=== PATIENT | female | born 1980 | race Caucasian/White ===

== ENCOUNTER 2019-10-24 21:05 | Emergency (ER) | payer OTHER, SELFPAY ==
[2019-10-24 21:11] VITALS: BP 145/90; PULSE 94; RESP 16; TEMP 36.4; O2SAT 98; BMI 24.2
--- NOTE | 2019-10-24 21:37 | ED_ITS ---
HPI - Back Pain/Injury General Chief Complaint: Back Pain/Injury Stated Complaint: low back and right hip pain Time Seen by Provider: 10/24/19 21:36 Source: patient History of Present Illness HPI Narrative: 39-year-old woman with no significant medical history comes in tonight with severe right sided lumbar spine pain with muscle spasm and radicular pain into the right hip. She notes that she been playing Frisbee about 2 weeks ago and had some mild strain to the lumbar region. She has been using Tylenol, ibuprofen, stretching, ice and felt that things were getting slightly better however over the last days it has hurt a bit more and then in the last 2 hours it has dramatically spasming and now radiating into the right hip. She describes no fevers, cough, chills, abdominal pain, flank pain, urine symptoms or bowel or bladder changes. She has no history of recent infection or IV drug use or immunosuppression. Related Data Previous Rx's Medication Instructions Recorded diazepam 5 mg PO TID PRN #10 tab 10/24/19 Allergies Allergy/AdvReac Type Severity Reaction Status Date / Time Opioids - Morphine Analogues Allergy Severe Unresponsiv Verified 10/24/19 21:16 e Penicillins Allergy Severe Hives Verified 10/24/19 21:16 Review of Systems Review of Systems Narrative: Remainder of review of systems including constitutional, ENT, cardiovascular, respiratory, GI, , musculoskeletal, skin, neurologic and psychiatric systems reviewed and are unremarkable except as noted in HPI. Patient History Medical History Acute low back pain (Acute) Social History Smoking Status: Never smoker Smoking Status: Never smoker alcohol intake frequency: a few times a week Substance Use Type: marijuana Exam Narrative Exam Narrative: General: Healthy appearing, in moderate distress secondary to low back pain HEENT: Moist mucous membranes, normal sclera with reactive pupils, Respiratory: Lungs are clear to auscultation, no wheezing no rales no rhonchi. Full and symmetrical air movement Cardiac: Regular rate and rhythm no murmurs no bruits Abdomen: Soft nontender good bowel tones, no flank pain Skin: Warm and dry, no rashes Spine: Significant muscle spasm from approximately T12 to the sacrum on the right side Neurologic: Grossly neurologically intact with no obvious asymmetries or abnormalities, positive straight leg test on the right side with normal reflexes and lower extremities and neurovascularly intact in lower extremities Extremities: No trauma, well perfused Psych: Cooperative, appropriate insight and affect Initial Vital Signs Initial Vital Signs: Vital Signs Temperature 97.6 F 10/24/19 21:11 Pulse Rate 94 H 10/24/19 21:11 Respiratory Rate 16 10/24/19 21:11 Blood Pressure 145/90 H 10/24/19 21:11 Pulse Oximetry 98 10/24/19 21:11 Course Orders Ordered: Discontinued Medications Diazepam (Valium) 5 mg PO NOW ONE Stop: 10/24/19 21:52 Last Admin: 10/24/19 22:08 Dose: 5 mg Documented by: BRET Ketorolac Tromethamine (Toradol) 30 mg IM NOW ONE Stop: 10/24/19 21:52 Last Admin: 10/24/19 22:08 Dose: 30 mg Documented by: BRET Vital Signs Vital signs: Vital Signs - 8 hr 10/24/19 21:11 Temperature 97.6 F Pulse Rate 94 H Respiratory Rate 16 Blood Pressure 145/90 H Pulse Oximetry 98 [facility] - Back Pain/Injury Medical Records Attestation: I reviewed the patient's medical records. [facility] Narrative Medical decision making narrative: 39-year-old woman with acute right-sided lower back pain with significant spasm. In the past she has had significant vomiting and nausea with even small amounts of opioid. Will try IM Toradol and diazepam for muscle spasm and re-evaluate. At this time there is no indication for acute infection, epidural abscess, UTI or pyelonephritis or cauda equinus syndrome. No additional red flags to suggest that any imaging is appropriate at this time 10:50 feeling significantly better after medications. 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 She is safe for home discharge. Discharge Plan Departure Patient Disposition: Home Clinical Impression: Acute low back pain Qualifiers: Back pain laterality: right Sciatica presence: with sciatica Sciatica laterality: sciatica of right side Qualified Code(s): M54.41 - Lumbago with sciatica, right side Instructions: DI for Low Back Pain Activity Restrictions/Additional Instructions: Thank you for coming in today I am sorry that you hurting so much. In the emergency room, your given a shot of Toradol (similar in effect to ibuprofen) as well as Valium/diazepam as a muscle relaxer. This combination seem to work moderately effectively and seems like it will get you to the level of comfort where your at least able to get some sleep this evening. Using 400 mg of ibuprofen (2 [id number] pills) and 1 Tylenol every 6 hours can be very helpful in controlling pain. For the muscle spasm using 5 mg of Valium/diazepam up to every 8 hours will help. Continuing to use ice and massage will also be useful. Please follow-up with Dr. Aldrich next week. If you not significantly improved he may find that physical therapy is helpful in getting back to as functional as possible. If you have worsening pain, fevers, developing abdominal or flank pain are other new or concerning findings please feel free to return to the emergency department and I am happy to re-evaluate. I wish you the best Prescriptions: New diazepam 5 mg tablet 5 mg PO TID PRN (Reason: muscle spasm) Qty: 10 RF: 0
[2019-10-24] MEDS: diazePAM 5 MG TABLET PO (22:08)
[2019-10-24] MEDS: KETOROLAC 60 MG/2 ML VIAL 30 MG IM (22:08)
[2019-10-24 23:12] VITALS: O2SAT 98
[2019-10-24 23:13] VITALS: BP 128/66; PULSE 80; RESP 16; O2SAT 97
== END 2019-10-24 23:20 | disposition home or self-care (01) ==
PROVIDERS: Emergency Provider Emergency Medicine
DX: M54.41 Lumbago with sciatica, right side (principal)
CPT/HCPCS: 96372; 99283; J1885

== ENCOUNTER → 2020-03-20 11:17 | Outpatient (CLI) | payer OTHER, SELFPAY | PROVIDERS: PCP Registered Nurse; Referring Provider Naturopath; Visit Provider Naturopath | DX: Z12.31 Encounter for screening mammogram for malignant neoplasm of breast (principal); Z85.3 Personal history of malignant neoplasm of breast ==

== ENCOUNTER → 2020-04-13 08:48 | Outpatient (CLI) | payer OTHER, SELFPAY ==
--- NOTE | 2020-04-13 | DI.MG.S_ITS ---
BILATERAL DIGITAL DIAGNOSTIC MAMMOGRAM 3D/2D: 04/13/2020 CLINICAL: Baseline exam. Left nipple discharge. Baseline exam. No prior exams were available for comparison. The tissue of both breasts is extremely dense, which lowers the sensitivity of mammography. No significant masses, calcifications, or other findings are seen in either breast. IMPRESSION: INCOMPLETE: NEEDS ADDITIONAL IMAGING EVALUATION No mammographic evidence of malignancy. A targeted ultrasound is recommended to evaluate the left breast nipple discharge and will immediately follow. This exam was interpreted at Station ID: [id number]. NOTE: For mammograms, a report in lay terms will be sent to the patient. Approximately 15% of breast malignancies will not be visualized mammographically. In the management of a palpable breast mass, a negative mammogram must not discourage biopsy of a clinically suspicious lesion. Electronically Signed By: Bret Reynolds M.D. slc/:04/13/2020 10:58:30 ACR BI-RADS Category 0: Incomplete [id number]
--- NOTE | 2020-04-13 | DI.US.S_ITS ---
LIMITED ULTRASOUND OF LEFT BREAST: 04/13/2020 CLINICAL: Nipple discharge, left breast, not bloody. [facility] and real-time ultrasound of the left breast were performed. Pate scale images of the real-time examination were reviewed. There is a dilated duct in the retroareolar left breast at 6 o'clock. This dilated duct displays internal echoes and no posterior acoustic shadowing or enhancement. Hypoechoic debris measuring 1.2 cm x 0.6 cm x 0.4 cm. This correlates with the nipple discharge. Color flow imaging demonstrates that there is no vascularity present. IMPRESSION: PROBABLY BENIGN Left retroareolar breast dilated duct with echogenic material resembling debris is probably benign. Patient describes the nipple discharge as single duct, non spontaneous, yellow/brownish, and intermittent for about 1 year. A follow-up ultrasound in 6 months is recommended to demonstrate stability. Exam findings were conveyed to the patient. Patient is advised to monitor for significant change. Clinical follow-up as needed. This exam was interpreted at Station ID: [id number]. Electronically Signed By: Bret Reynolds M.D. slc/:04/13/2020 11:07:04 letter sent: Followup Recommended Ultrasound BI-RADS: 3 Probably benign
== END ==
PROVIDERS: PCP Registered Nurse; Referring Provider Naturopath; Visit Provider Naturopath
DX: R92.8 Other abnormal and inconclusive findings on diagnostic imaging of breast (principal); N64.52 Nipple discharge; N64.4 Mastodynia; N60.42 Mammary duct ectasia of left breast
CPT/HCPCS: 76642; 77066; G0279

== ENCOUNTER → 2022-12-05 09:25 | Outpatient (CLI) | payer OTHER, SELFPAY ==
--- NOTE | 2022-12-05 | DI.US.S_ITS ---
LIMITED ULTRASOUND OF LEFT BREAST AND AXILLA: 12/05/2022 CLINICAL: Patient returns today to evaluate a focal asymmetry in the left breast. Comparison is made to exams dated: 12/05/2022 mammogram, 04/13/2020 ultrasound, and 04/13/2020 mammogram - [facility]. Color flow and real-time ultrasound of the left breast 12 o'clock, retroareolar, and axilla regions were performed. Pate scale images of the real-time examination were reviewed. There is a benign dilated duct in the left breast central to the nipple in the retroareolar region. This abnormality is not significantly changed in size. The debris previously seen within the duct is not apparent. No intraductal mass. There also is a benign 0.6 cm x 0.5 cm x 0.5 cm oval simple cyst in the left breast at 12 o'clock in the retroareolar region. This oval simple cyst is anechoic. This correlates as an incidental finding. Color flow imaging demonstrates that there is no vascularity present. No significant abnormalities were seen sonographically in the left axilla. IMPRESSION: BENIGN There is no sonographic evidence of malignancy. The dilated duct in the left breast central to the nipple in the retroareolar region is benign. No intraductal mass. The 0.6 cm simple cyst in the left breast at 12 o'clock in the retroareolar region is benign. No enlarged left axillary lymph nodes. A 1 year screening mammogram is recommended. This exam was interpreted at Station ID: [id number]. Electronically Signed By: Bret Reynolds M.D. slc/:12/05/2022 16:48:19 letter sent: Normal Exam Ultrasound BI-RADS: 2 Benign
--- NOTE | 2022-12-05 | DI.MG.S_ITS ---
BILATERAL DIGITAL DIAGNOSTIC MAMMOGRAM 3D/2D SHORT-TERM FOLLOW-UP: 12/05/2022 CLINICAL: Short term follow up of the left breast, due for bilateral imaging. Comparison is made to exams dated: 04/13/2020 mammogram and 04/13/2020 [facility]. Both breasts are extremely dense, which lowers the sensitivity of mammography (category d />75% glandular tissue). No significant masses, calcifications, or other findings are seen in either breast. IMPRESSION: INCOMPLETE: NEEDS ADDITIONAL IMAGING EVALUATION No mammographic evidence of malignancy. A targeted ultrasound is recommended and will immediately follow. Based on the Tyrer Cuzick model (a risk assessment model) the patient's lifetime risk is 18.4% and her 10 year risk is 3.0%. According to the ACR, ACS, and NCCN guidelines, an annual breast MRI exam along with mammogram is recommended if the patient's lifetime risk is 20% or greater. This exam was interpreted at Station ID: [id number]. NOTE: For mammograms, a report in lay terms will be sent to the patient. Approximately 15% of breast malignancies will not be visualized mammographically. In the management of a palpable breast mass, a negative mammogram must not discourage biopsy of a clinically suspicious lesion. Electronically Signed By: Bret Reynolds M.D. slc/:12/05/2022 16:43:19 ACR BI-RADS Category 0: Incomplete [id number]
== END ==
PROVIDERS: PCP Nurse Practitioner Family; Referring Provider Nurse Practitioner Family; Visit Provider Nurse Practitioner Family
DX: N60.02 Solitary cyst of left breast (principal); R92.2 Inconclusive mammogram; N64.52 Nipple discharge
CPT/HCPCS: 76642; 77066; G0279

== ENCOUNTER 2023-01-30 13:04 | Day surgery (SDC) | payer OTHER, SELFPAY ==
[2023-01-25 08:42] VITALS: BMI 26.3
--- NOTE | 2023-01-30 | PATH_ITS ---
[facility] Accession Number: [id number] No. of containers..02 Tissue . 01 Material submitted: . PART A: cervix - LEEP CERVIX PART B: cervix - ECC CERVIX . 01 Diagnosis: A. LEEP, Cervix: Focal involvement by high-grade squamous intraepithelial lesion / KEVIN-2 and adjacent regions involved by low-grade squamous intraepithelial lesion / KEVIN-1. The apparent endocervical margin is negative for dysplasia. The apparent ectocervical margin is negative for dysplasia. No invasive tumor identified. Changes consistent with previous instrumentation are present. . B. ECC Cervix: Endocervical tissue fragments and detached strips of endocervical glandular epithelium; negative for dysplasia or malignancy. Detached, tangentially oriented portions of squamous epithelium, favor a reactive etiology. [facility] 02/10/2023 1642 Local . 01 Comment: The biopsy results correlate with Pap smear [id number]. . 01 Electronically signed: . Shirley Byrd MD, Pathologist NPI- [id number] . 01 Gross description: . A. Received in formalin with no patient identifiers (authorization form received), and 1 LEEP EXC cervix, consists of an unoriented linear fragment of cervix measuring 3.9 x 1.0 x 0.3 cm. The ectocervix is eli and roughened. The presumed endocervical margin is inked orange while the remaining stromal margins are inked blue. The specimen is serially sectioned and submitted entirely in sequential quadrants in cassettes A1-A4. B. Received in formalin, with no patient identifiers (authorization form received), and 2 ECC cervix, consists multiple eli to brown soft tissue fragments admixed with mucohemorrhagic material aggregating to 2.3 x 2.0 x 0.1 cm. Filtered and submitted entirely in cassette B1. ([id number]) /MRV 02/04/[address] [place] [address] . 01 Microscopic: . An immunohistochemical stain for p16 is performed on blocKs A1, A2, A3 and B1 to evaluate for block reactivity. The control stained with appropriate reactivity. . RESULTS: Blocks A1-A3: P16: Positive for block immunostaining. . P16 block immunostaining supports the presence of high risk HPV DNA in this biopsy. . Block B1: P16: Negative for block immunostaining. . The absence of p16 block immunostaining mitigates against the presence of high risk HPV DNA in this biopsy. . * This test was developed and its performance characteristics determined by [employer]. It has not been cleared or approved by the U.S. Food and Drug Administration. The FDA has determined that such clearance or approval is not necessary. This test is used for clinical purposes. It should not be regarded as investigational or for research. . 01 Pathologist provided ICD-10: N87.1, N87.0 . 01 CPT . 514155, V68493, 012179 Specimen Comment: A courtesy copy of this report has been sent to [facility] Pathology Performed at: 01 [facility] [address] [place] [address], [place], [place] [id number] MD Kishore Sarmiento MD Phone: [phone]
[2023-01-30] MEDS: LACTATED RINGERS 1,000 ML 100 ML IV (13:53)
[2023-01-30 14:00] VITALS: BP 132/76; PULSE 97; RESP 16; TEMP 36.8; O2SAT 97; BMI 26.3
--- NOTE | 2023-01-30 14:32 | SUR.OPER ---
Lithotomy on padded OR bed, head on pillow, arms secured on padded arm boards at <90 degrees abduction. Legs secured in padded yellow fins stirrups.
--- NOTE | 2023-01-30 14:39 | PM.PREOP ---
Pre-operative Note Interval Note History & Physical reviewed/Exam performed by Physician: Yes Changes to H&P: No H&P completed within 30 days and has changed as indicated here:: No changes to H&P on 01/25/23.
--- NOTE | 2023-01-30 15:52 | PM.OP.1 ---
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 She also desires Mirena IUD exchange while under anesthesia, as her current IUD is due for removal soon. She feels nervous about the procedure, but desires to still have it done. Prior discussion from recent colpo: Called, spoke with pt, discussed her colpo results. Biopsy at 6 o'clock and ECC were worrisome for HGSIL, but there was no definitive diagnosis of HGSIL. Discussed with pt that if she is done with childbearing, then she should consider undergoing a LEEP, in the hopes that this would cure her dysplasia. If she does not want to undergo a LEEP, then observation would be 6 and 12mo colposcopy/cotesting. Dysplasia hx: 2020- NILM/HPV pos, colpo with KEVIN 1 2021- ASC-H/HPV pos, colpo with KEVIN 1 2022- ASCUS/HPV pos, colpo with concern for HGSIL Surgeon: Fabienne Jin Click Yes if Unassisted: Yes Anesthesia Type: General Operative Notes Findings: Normal appearing vulva, vagina, and cervix. Specimen(s): other (LEEP, ECC) Estimated Blood Loss (mL): 5 Blood products transfused: none Procedure in detail: The risks, benefits, indications and alternatives of the procedure were reviewed with the patient and informed consent was obtained. The pt was taken to the operating room where general anesthesia was obtained without difficulty. The pt was then placed in the low lithotomy position using gel-padded Noman stirrups. SCDs were placed bilaterally for VTE prophylaxis. The bladder was drained with an in-and-out catheter. The pt was then prepped and draped in the sterile fashion. A sterile, coated speculum was placed into the vagina and the cervix was visualized. The IUD strings were visualized, grasped, and the IUD was removed intact. A paracervical block was then performed using approximately 10cc of 1% lidocaine with epinephrine. A 1.5 x 0.5cm LEEP radius electrode was used to excise the ectocervix. A Kevorkian curette was then used to perform an endocervical curettage. All tissues were sent to pathology for review. Hemostasis was acheived with electrocautery using the Roller Ball electrode. The uterus was sounded to 7cm, and the new Mirena IUD was then placed per academic support center director's instructions, with the strings trimmed to 2cm. Monsel's solution was then applied with excellent hemostasis noted. All instruments were then removed from the vagina. At the completion of the case the sponge and needle counts were correct x 2. The patient tolerated the procedure well and was taken to the PACU in stable condition. Mirena IUD lot #[id number]; Exp Complications: none Post-operative Condition: stable Disposition: PACU Plan for aftercare: Discharge home once meeting PACU criteria.
[2023-01-30 15:55] VITALS: BP 124/84; PULSE 88; RESP 18; TEMP 36.4; O2SAT 100
[2023-01-30 16:00] VITALS: BP 126/79; PULSE 90; RESP 14; O2SAT 100
[2023-01-30 16:05] VITALS: BP 120/82; PULSE 88; RESP 16; O2SAT 100
[2023-01-30 16:20] VITALS: BP 125/80; PULSE 86; RESP 15; O2SAT 100
[2023-01-30] MEDS: ACETAMINOPHEN IV 1,000 MG/100 ML VIAL 400 MG IV (16:23)
[2023-01-30 16:35] VITALS: BP 117/80; PULSE 82; RESP 12; TEMP 37; O2SAT 100
--- NOTE | 2023-01-31 07:58 | SUR.OPER ---
10 ml Lidocaine 1 % with epi cervix by Dr Sawant Mirena IUD removed and discarded New Mirena IUD from Dr Sawant office implanted.. patient home with ID card
== END 2023-01-30 16:50 | disposition home or self-care (01) ==
PROVIDERS: PCP Nurse Practitioner Family; Referring Provider Student in an Organized Health Care Education/Training Program; Visit Provider Student in an Organized Health Care Education/Training Program
PROC: 0UBC7ZZ Excision of Cervix, Via Natural or Artificial Opening (ICD-10-PCS; CPT 57522; principal; 2023-01-30 14:45)
DX: N87.1 Moderate cervical dysplasia (principal); N87.0 Mild cervical dysplasia; Z30.433 Encounter for removal and reinsertion of intrauterine contraceptive device
CPT/HCPCS: 58301; 58300; 57522; J0131; J0330; J1885; J2405; J2704; J3010; J7298

== ENCOUNTER → 2023-02-10 14:44 | Outpatient (CLI) | payer OTHER, SELFPAY ==
[2023-02-13 10:07] LABS: Candida species Negative (Negative); Gardnerella vaginalis Negative (Negative); Trichomoas vaginalis Negative (Negative)
== END ==
PROVIDERS: PCP Nurse Practitioner Family; Visit Provider Obstetrics & Gynecology
DX: N89.8 Other specified noninflammatory disorders of vagina (principal)
CPT/HCPCS: 87480; 87510; 87660

== ENCOUNTER → 2024-02-02 11:52 | Outpatient (CLI) | payer OTHER, SELFPAY ==
--- NOTE | 2024-02-02 11:53 | DI.MG.S_ITS ---
BILATERAL DIGITAL SCREENING MAMMOGRAM 3D/2D WITH CAD: 02/02/2024 CLINICAL: Routine screening. Comparison is made to exams dated: 12/05/2022 mammogram and 04/13/2020 mammogram - [facility]. The breasts are heterogeneously dense, which may obscure small masses (category c / 51-75% glandular tissue). Current study was also evaluated with a Computer Aided Detection (CAD) system. No significant masses, calcifications, or other findings are seen in either breast. There has been no significant interval change. IMPRESSION: NEGATIVE There is no mammographic evidence of malignancy. A 1 year screening mammogram is recommended. Based on the Tyrer Cuzick model (a risk assessment model) the patient's lifetime risk is 12.5% and her 10 year risk is 2.1%. According to the ACR, ACS, and NCCN guidelines, an annual breast MRI exam along with mammogram is recommended if the patient's lifetime risk is 20% or greater. This exam was interpreted at Station ID: [id number]. NOTE: For mammograms, a report in lay terms will be sent to the patient. Approximately 15% of breast malignancies will not be visualized mammographically. In the management of a palpable breast mass, a negative mammogram must not discourage biopsy of a clinically suspicious lesion. Electronically Signed By: Theo ferreira/inocencio:02/03/2024 09:11:56 letter sent: Normal Exam ACR BI-RADS Category 1: Negative
== END ==
LOC: MAMMO 11:53
PROVIDERS: PCP Nurse Practitioner Family; Referring Provider Nurse Practitioner Family; Visit Provider Nurse Practitioner Family
DX: Z12.31 Encounter for screening mammogram for malignant neoplasm of breast (principal); R92.333 Mammographic heterogeneous density, bilateral breasts
CPT/HCPCS: 77063; 77067

== ENCOUNTER → 2024-08-13 09:26 | Outpatient (CLI) | payer OTHER, SELFPAY ==
[2024-08-13 09:56] LABS: Add Manual Diff / Slide Review NO; Hematocrit 41.1 % (36-46); Hemoglobin 14.1 g/dL (12.0-16.0); Lymphocytes Absolute Auto 2300 /uL (1100-4500); Mean Corpuscular HGB Conc 34.4 % (30-36); Mean Corpuscular Hemoglobin 31.0 PG (26-34); Mean Corpuscular Volume 90.0 fL (80-100); Platelet Count 251 X10^3/uL (150-400)
[2024-08-13 10:11] LABS: Hemoglobin A1C% w Est Avg Glu 4.5 % (4.0-6.0)
[2024-08-13 10:20] LABS: Alanine Aminotransferase 18 IU/L (<35); Albumin 4.3 g/dL (3.5-5.0); Albumin Globulin Ratio 1.7 (1.0-2.8); Alkaline Phosphatase 53 U/L (38-126); Blood Urea Nitrogen 9 mg/dL (7-17); Calcium 9.1 mg/dL (8.4-10.2); Carbon Dioxide 22 mmol/L (22-32); Chloride 105 mmol/L (98-107); Cholesterol 157 mg/dL (140-199); Estimated Glomerular Filt Rate > 60 mL/min (>60); Globulin 2.6 g/dL (1.7-4.1); Glucose 87 mg/dL (70-99); HDL Cholesterol 72 mg/dL (40-60); HEMOLYSIS < 15 (0-50); Potassium 4.2 mmol/L (3.4-5.1); Sodium 134 mmol/L (137-145); Total Protein 6.9 g/dL (6.3-8.2); Triglycerides 107 mg/dL (35-150)
[2024-08-13 10:35] LABS: Free T4, Direct Thyroxine 1.02 ng/dL (0.78-2.19)
[2024-08-13 10:49] LABS: Thyroid Stimulating Hormone 1.92 uIU/mL (0.47-4.68)
== END ==
PROVIDERS: PCP Nurse Practitioner Family; Referring Provider Nurse Practitioner Family; Visit Provider Nurse Practitioner Family
DX: L08.9 Local infection of the skin and subcutaneous tissue, unspecified (principal); N64.52 Nipple discharge; Z12.11 Encounter for screening for malignant neoplasm of colon; Z13.220 Encounter for screening for lipoid disorders; Z13.1 Encounter for screening for diabetes mellitus
CPT/HCPCS: 36415; 80053; 80061; 83036; 84146; 84439; 84443; 85025

== ENCOUNTER 2024-11-20 08:27 | Day surgery (SDC) | payer OTHER, SELFPAY ==
[2024-11-20 09:02] VITALS: BP 102/63; PULSE 103; RESP 16; TEMP 36.6; O2SAT 99
[2024-11-20] MEDS: LACTATED RINGERS 1,000 ML 42 ML IV (09:04)
--- NOTE | 2024-11-20 09:18 | PM.HP.IH.1 ---
History of Present Illness History of Present Illness Date Patient Seen: 11/20/24 Chief complaint: Colonoscopy PFSH Medical History (Updated 01/25/23 @ 13:51 by Fabienne Jin DO) Concussion Acute low back pain Surgical History (Updated 01/25/23 @ 08:46 by Diana Zurita RN) [place] teeth removed (2018) Social History household members: children Smoking Status: Never smoker alcohol intake: current Meds Home Medications and Allergies Home Medications ?Medication ?Instructions ?Recorded ?Confirmed ?Type loratadine 10 mg tablet (Claritin) 10 mg PO DAILY 11/20/24 11/20/24 History Allergies Allergy/AdvReac Type Severity Reaction Status Date / Time Opioids - Morphine Analogues Allergy Severe Unresponsiv Verified 11/20/24 08:50 e Penicillins Allergy Severe Hives Verified 11/20/24 08:50 Exam Vital Signs (past 8 hours): - 11/20/24 09:02 Temperature 98 F Pulse Rate 103 H Respiratory Rate 16 Blood Pressure 102/63 Pulse Oximetry 99 Oxygen Delivery Method Room Air Oxygen Delivery Method Room Air Narrative Exam Narrative: Oropharynx free of lesions Chest clear to auscultation percussion Cardiac exam reveals no S3 or murmur Assessment & Plan Assessment & Plan narrative: For screening colonoscopy. Risks, benefits, alternatives have been Time-Based Coding :: [TOTAL MINUTES] spent with patient and on the chart (including review of chart, obtaining history, exam, reviewing outside data, placing orders, documenting exam and treatment plan, and counseling patient) on [DATE]. 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
--- NOTE | 2024-11-20 09:20 | PM.OP.COLON ---
Operative Date/Time/Diagnoses Date of procedure: 11/20/24 Time of procedure: 10:28 Pre-op diagnosis: See indication and findings Post-op diagnosis: same Procedure & Clinicians Study performed: Colonoscopy Same procedure(s) as scheduled: Yes Indications: First screening Surgeon: Samra Angel Anesthesia Type: Other Procedure Notes Procedure in detail: After informed consent was obtained the patient was placed in left lateral decubitus position. The video colonoscope was introduced the rectum slowly advanced cecum. Preparation was good. On slow withdrawal mucosa was carefully examined. The scope was removed. The patient tolerated procedure well. Blood loss none Complications none Sedation mac Findings 1. Normal colonoscopy to cecum Patient have follow-up colonoscopy in 10 years
[2024-11-20 10:33] VITALS: BP 94/53; PULSE 86; RESP 18; TEMP 36.6; O2SAT 97
[2024-11-20 10:38] VITALS: BP 97/54; PULSE 93; RESP 16; TEMP 36.4; O2SAT 97
[2024-11-20 10:45] VITALS: BP 102/59; PULSE 84; RESP 16; TEMP 36.4; O2SAT 98
== END 2024-11-20 11:10 | disposition home or self-care (01) ==
PROVIDERS: PCP Nurse Practitioner Family; Referring Provider Internal Medicine Gastroenterology; Visit Provider Internal Medicine Gastroenterology
PROC: 0DJD8ZZ Inspection of Lower Intestinal Tract, Via Natural or Artificial Opening Endoscopic (ICD-10-PCS; CPT 45378; principal; 2024-11-20 09:30)
DX: Z12.11 Encounter for screening for malignant neoplasm of colon (principal)
CPT/HCPCS: 45378; J2704; J7120